=== PATIENT | male | born 1965 | race Caucasian/White ===

== ENCOUNTER 2025-04-16 12:34 | Emergency (ER) | payer OTHER ==
[~2025-04-16] VITALS: Ht 177.8 cm; Wt 68.0 kg
[2025-04-16] MEDS ORDERED: Ondansetron HCl 2 MG / ML 2ML Vial IV ONE (13:20)
[2025-04-16] MEDS ORDERED: STIOLTO RESPIMAT4 G1 INH (13:21)
[2025-04-16] MEDS ORDERED: PROAIR DIGIHAL90 MCG INH (13:22)
[2025-04-16 13:29] LABS: BASOPHILS ABSOLUTE AUTO 0.06 K/mm3 (0.00-0.23); BASOPHILS PERCENT AUTO 0 % (0-2); EOSINOPHILS ABSOLUTE AUTO 0.26 K/mm3 (0.00-0.68); EOSINOPHILS PERCENT AUTO 2 % (0-6); Hematocrit 51.5 % (37.0-53.0); Hemoglobin 17.0 g/dL (13.5-17.5); IMMATURE GRAN ABSOLUTE AUTO 0.04 K/mm3 (0.00-0.10); IMMATURE GRAN PERCENT AUTO 0 % (0-1); LYMPHOCYTES ABSOLUTE AUTO 1.10 K/mm3 (0.84-5.20); LYMPHOCYTES PERCENT AUTO 8 % (21-46); MONOCYTES ABSOLUTE AUTO 1.04 K/mm3 (0.16-1.47); MONOCYTES PERCENT AUTO 7 % (4-13); Mean Corpuscular HGB Conc 33.0 g/dL (31.5-36.5); Mean Corpuscular Volume 86 fL (80-100); NEUTROPHILS ABSOLUTE AUTO 11.57 K/mm3 (1.96-9.15); NEUTROPHILS PERCENT AUTO 82 % (41-73); NRBC ABSOLUTE 0.00 K/mm3 (0.00-0.02); NRBC Auto 0.0 /100 WBC (0.0-0.2); Platelet Count 359 K/mm3 (150-400); RDW Coefficient Variation 13.1 % (11.7-14.2); RDW Standard Deviation 41.1 fL (35.1-46.3)
[2025-04-16] MEDS ORDERED: Lidocaine 2% Viscous Soln 15 ML UDC PO ONE (14:00)
[2025-04-16 14:06] LABS: CORONAVIRUS COVID-19 AG Negative (NEGATIVE)
[2025-04-16 14:10] LABS: Alanine Aminotransfer (ALT/SGP 41.0 U/L (12-78); Albumin, Blood 4.2 g/dL (3.4-5.0); Albumin/Globulin Ratio 1.1 (0.8-1.8); Anion Gap 11.0 mmol/L (3-11); Aspartate Aminotrans (AST/SGOT 38.0 U/L (12-37); Bilirubin, Total 0.9 mg/dL (0.1-1.0); Blood Urea Nitrogen 12.0 mg/dL (8-24); CO2, Blood 27.0 mmol/L (21-32); Calcium, Blood 10.6 mg/dL (8.5-10.1); Chloride, Blood 98.0 mmol/L (98-108); Creatinine, Blood 0.8 mg/dL (0.60-1.20); Globulin, Blood 3.7 g/dL (2.2-4.0); Glucose, Blood 120.0 mg/dL (70-99); Potassium, Blood 4.2 mmol/L (3.5-5.5); Sodium, Blood 132.0 mmol/L (136-145); Total Protein, Blood 7.9 g/dL (6.4-8.2)
[2025-04-16] MEDS ORDERED: Prednisone20 MG PO (14:27)
[2025-04-16] MEDS ORDERED: Pepcid20 MG PO (14:27)
[2025-04-16] MEDS ORDERED: ONDA4ODT MM (14:27)
== END 2025-04-16 14:47 | disposition home or self-care (01) ==
LOC: ER 12:34
PROVIDERS: Emergency Medicine
DX: J44.9 Chronic obstructive pulmonary disease, unspecified (principal); R10.13 Epigastric pain
CPT/HCPCS: 80053; 83690; 85025; 87428-QW; 96374; 99283-25; A9270; J2405